=== PATIENT | female | born 1950 | race Caucasian/White ===

== ENCOUNTER → 2016-10-22 | Outpatient (CLI) | payer BC ==
[~2016-10-22] MED LIST: ALPRAZOLAM PO; ASPIRIN PO; LORTAB 7.5-5001 TAB PO; MAXZIDE 75/50 T1 TAB PO; MULTI-VITAMIN1 TAB PO; PRIMROSE OIL; VIT E PO
--- NOTE | ~2016-10-22 | CT57 ---
[facility] A Service of [facility] RADIOLOGY TEXT RESULTS PATIENT: HUNG POZO LOCATION: [facility] : 50 UNIT #: [id number] AGE: [address]: Jimmie Garrett MD SEX: F ORDER DR: [id number] [facility]. [place], [place] [address] [id number] O MR#: [id number] [facility] #: [id number] NAME: HUNG POZO : 1950 SEX: F STUDY DATE/TIME: 10/22/2016 11:18 UNIT: [facility] ROOM: STUDY DESCRIPTION: CT Chest Wo Cont Attending Physician: Jimmie Garrett M.D. Ordering Physician: Jimmie Garrett M.D. Primary Care Physician: Jimmie Garrett M.D. MEDICAL IMAGING REPORT This report is preliminary unless electronic signature is present EXAM CT chest INDICATION Left upper lobe pulmonary lesion. Pulmonary nodule. Restaging. TECHNIQUE CT of the thorax without contrast. Coronal and sagittal reconstructions were obtained. This CT exam was performed with one or more of the following radiation dose reduction techniques: automatic exposure control, adjustment of mA and/or kV according to patient size, and iterative reconstruction. COMPARISON CT chest dated 10/24/2015, 04/25/2015 and 10/17/2014. FINDINGS The 6 mm pulmonary nodule in the left lower lobe at the costophrenic angle is unchanged from 10/17/2014. This stability confirms a benign etiology. In addition, there has been development of a central calcification further confirming a benign granuloma. Several smaller calcified granulomas are identified. There is no new or suspicious pulmonary nodules. There is incidental anatomic variant of a aberrant origin of the apical segment right upper lobe (a.k.a. pig bronchus). No pathologically-enlarged mediastinal or hilar lymph nodes. No pericardial or pleural effusion. Thoracic aorta is normal in caliber. Limited images of the upper abdomen were obtained. There is no acute findings. [facility] A Service [facility] RADIOLOGY TEXT RESULTS PATIENT: HUNG POZO LOCATION: [facility] EDT #: [id number] : 50 UNIT #: [id number] AGE: [address]: Jimmie Garrett MD SEX: F ORDER DR: No acute osseous abnormalities. IMPRESSION 1. Benign granuloma in the left lower lobe. This has shown stability for greater than 2 years and has developed some central calcification. This is all consistent with a benign granuloma. 2. No new or suspicious findings in the chest. Dictated by... Dmitriy Guaman M.D. THIS IS AN ELECTRONICALLY VERIFIED REPORT Dmitriy Guaman M.D. at 10/22/2016 3:42 PM RPCherry/jan TD: 10/22/2016 14:55 JOB #: [id number] MEDICAL IMAGING REPORT Page 1 of 1 COPY
== END | disposition home or self-care (01) ==
LOC: CCAT 10:42
DX: R91.1 Solitary pulmonary nodule (principal); J84.10 Pulmonary fibrosis, unspecified; J98.4 Other disorders of lung
CPT/HCPCS: 71250